=== PATIENT | male | born 1985 | race Caucasian/White ===

== ENCOUNTER 2018-03-10 19:09 | Emergency (ER) | payer BC, OTHER ==
[2018-03-10 19:17] VITALS: BP 138/92
--- NOTE | 2018-03-10 19:27 | EDPHY ---
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 He is able to bear partial weight only albeit with significant pain to the tibial plateau region. No proximal distal pain or injury. No hip pain injury. No paresthesia. PHYSICAL EXAM (Prior to examination, patient consented to physical exam, hands were washed and my usual and customary physical exam procedures followed) 1) GENERAL: Well-developed, well-nourished, alert and oriented. Appears to be in no acute distress. 2) HEAD: Normocephalic 3) HEENT: Pupils equal, round, reactive to light bilaterally. 4) LUNGS: Breathing comfortably. 5) MUSCULOSKELETAL: Exam of the left knee shows no discoloration. Tender to palpation tibial plateau region. Reproducible pain to same location with flexion. Limited flexion. Full extension. . Compartments are soft. 6) SKIN: Intact. 7) VASCULAR: DP,PT pulses and cap refill present and brisk distally DIFFERENTIAL DIAGNOSIS: in no particular order including but not limited to fracture, sprain, compartment syndrome, septic arthritis, DVT Procedure: Crutches indications for crutch use discussed with patient. Patient fitted for crutches by ER staff. Observed ambulating with crutches. I think the patient has the capacity to safely use crutches. Usual and customary crutch walking precautions provided Procedure: Splint A knee immobilizer splint was applied by ER critical care technician. After application of the splint I returned and re-examined the patient. The splint was adequately immobilizing the joint and distal to the splint the patient's circulation and sensation were intact. Patient shows no signs of compartment syndrome. Was given orthopedic precautions. MEDICAL DECISION MAKING Serial evaluations performed on patient. I discussed the limitations of x-ray in diagnosis of knee pain and injury. At this time I do not think that emergent MRI is currently indicated. However, I have recommended follow-up with Orthopedic surgery and provided this referral information. Informed the patient that outpatient MRI may be indicated. Doubt septic arthritis. Doubt compartment syndrome. Doubt DVT. Will need follow up with work comp provider. Also recommended orthopedic follow-up with on-call orthopedics. My usual and customary orthopedic precautions instructions provided. Smoking Status: Never smoked Constitutional: Initial Vital Signs Temperature (C) 37.2 C 03/10/18 19:14 Heart Rate 88 03/10/18 19:14 Respiratory Rate 20 03/10/18 19:14 Blood Pressure 138/92 H 03/10/18 19:14 O2 Sat (%) 95 03/10/18 19:14 O2 Delivery Mode Room Air Allergies/Adverse Reactions: No Known Allergies Allergy (Unverified 03/10/18 19:13) Home Medications: Medication Instructions Recorded Hydrocodone/APAP 5/325 [[place] 1 tab PO Q6 PRN #7 tab 03/10/18 5/325 (RX)] Omeprazole 03/10/18 MDM/Departure - MDM Imaging Results: Imaging Impressions Knee X-Ray 03/10/18 19:15 Impression: 1. There is no acute osseous abnormality. 2. Small suprapatellar joint effusion. Images reviewed myself - Depart Disposition: Home, Routine, Self-Care Clinical Impression: Sprain of left knee Qualifiers: Encounter type: initial encounter Involved ligament of knee: unspecified ligament Qualified Code(s): S83.92XA - Sprain of unspecified site of left knee, initial encounter Fall from slipping on snow Qualifiers: Encounter type: initial encounter Qualified Code(s): W00.9XXA - Unspecified fall due to ice and snow, initial encounter Condition: Good Instructions: Knee Sprain (ED) Additional Instructions: Return to the ER immediately if you experience discoloration, have worsening pain, numbness, tingling, or any other symptoms that concern you. If you received x-rays in the emergency department today, be advised, that ligamentous , tendon, muscular, and other non-bony injury cannot be fully ruled out. Try to keep your affected extremity elevated above the level of your chest, and keep cold packs on the affected area, for the next 48 hours. Stand Alone Forms: Work Comp Follow Up, Work Excuse Prescriptions: Hydrocodone/APAP 5/325 [[place] 5/325 (RX)] 1 tab PO Q6 PRN #7 tab PRN Reason: Pain, Severe Referrals: Francisco Pleitez MD [Medical Doctor] - 2-3 days, call for appt.
== END 2018-03-10 19:54 | disposition home or self-care (01) ==
DX: S83.92XA Sprain of unspecified site of left knee, initial encounter (principal); W00.9XXA Unspecified fall due to ice and snow, initial encounter; Y93.9 Activity, unspecified; Y92.9 Unspecified place or not applicable; Y99.0 Civilian activity done for income or pay
CPT/HCPCS: L1830